=== PATIENT | female | born 1945 | race Caucasian/White ===

== ENCOUNTER 2021-04-27 14:19 | Observation (INO) ==
[2021-04-27] MEDS ORDERED: IOPAMIDOL 100 ML BOTTLE IV ONE (14:20)
[2021-04-27] MEDS ORDERED: DEXAMETHASONE 10 MG/ML VIAL IV ONE (14:50)
[2021-04-27] MEDS ORDERED: diphenhydrAMINE 50 MG/ML VIAL IV ONE (14:50)
[2021-04-27] MEDS ORDERED: KETOROLAC 30 MG/ML VIAL IV ONE (14:50)
[2021-04-27] MEDS ORDERED: PROCHLORPERAZINE 10 MG/2 ML VIAL IV ONE (14:50)
[2021-04-27] MEDS ORDERED: 0.9 % SODIUM CHLORIDE 500 ML IV ONE (14:50)
--- NOTE | 2021-04-27 15:01 | Emergency Department Note ---
Headache HPI General Chief Complaint: Headache Stated Complaint: nausea/vomiting, headache Time Seen by Provider: 04/27/21 14:42 Source: patient, RN notes reviewed, old records reviewed and other (Caregiver) Mode of arrival: EMS Limitations: other History of Present Illness HPI Narrative: Narrative: 75-year-old female according to caregivers complaining of headache with nausea vomiting and abdominal cramping. She met with her patient at 12:00 today and found her in this condition. We are unable to discern when the took place. No preceding illnesses. Caregiver has POLST with her the patient is comfort care no heroic measures DO NOT RESUSCITATE. MD Complaint: headache Onset (ago): hour(s) (3) Onset description: gradual Location: Diffuse Severity: severe Quality: aching and throbbing Improves with: dark room Worsens with: movement of head/neck and light Context: occurred at rest Associated symptoms: Reports nausea, vomiting, photophobia, sensitivity to sound and confusion; Denies fever, neck stiffness, rash, seizure, eye pain, syncope, vision loss, scotoma, tingling, numbness and weakness Other symptoms: chest pain, cough, diaphoresis, malaise, rash, seizure, SOB, eye pain/redness and other (Abdominal pain) Treatments prior to arrival: none Related Data Home Medications Medication Instructions Recorded Confirmed cetirizine 5 mg PO QDAY 02/17/20 02/04/21 escitalopram oxalate [Lexapro] 20 mg PO QDAY 02/17/20 02/04/21 metformin 500 mg PO QDAY 02/17/20 02/04/21 omeprazole-sodium bicarbonate 1 cap PO QDAY 02/17/20 02/04/21 [Zegerid OTC] risedronate [Actonel] 150 mg PO QMONTH 02/17/20 02/04/21 simvastatin [Zocor] 10 mg PO QDAY 02/17/20 02/04/21 Previous Rx's Medication Instructions Recorded prochlorperazine maleate 5 mg PO BID PRN #10 tab 04/27/21 [Compazine] Allergies Allergy/AdvReac Type Severity Reaction Status Date / Time atorvastatin [From Lipitor] Allergy Unknown Unknown Verified 04/27/21 14:36 Buspirone [From BuSpar] Allergy Unknown Unknown Verified 04/27/21 14:36 niacin Allergy Unknown Unknown Verified 04/27/21 14:36 [From Niaspan Extended-Release] Review of Systems ROS ROS Narrative: Narrative: Limitations: ROS unobtainable due to patients medical condition [facility] Narrative Patient History Narrative: Narrative: Medical/Surgical/Family History All Active Problems (Updated 04/27/21 @ 19:04 by Skip Del Valle MD) Abrasion (Acute) Headache (Acute) Colitis (Acute) Intertrigo (Acute) Fall (Acute) Erysipelas (Acute) Candidiasis of breast (Acute) Medical History Erysipelas Intertrigo Social History Smoking Status: Never smoker Exam Narrative Narrative: Narrative: General Limitations: other General appearance: Present alert and in distress Head Head: Present atraumatic, normocephalic and normal inspection Eye Eye: Present normal appearance, PERRL and EOMI ENT ENT: Present normal exam and mucous membranes moist Neck Neck: Present normal inspection and full ROM; Absent tenderness, meningismus and lymphadenopathy Chest Chest: Present normal inspection; Absent tenderness Respiratory Respiratory: Present normal lung sounds bilaterally; Absent respiratory distress Cardiovascular Cardiovascular: Present regular rate and normal rhythm; Absent systolic murmur Adbominal Abdominal: Present soft and tenderness; Absent distention, guarding, rebound and rigidity Extremities Extremities: Present normal inspection, full ROM and normal capillary refill; Absent tenderness, pedal edema and pretibial edema Back Back: Present normal inspection; Absent CVA tenderness (R) and CVA tenderness (L) Neurological Neurological: Present alert and oriented X3 Psychiatric Psychiatric: Present normal affect and normal mood Skin Skin: Present warm (WNL); Absent rash Course Reevaluation(s) Reevaluation #1: When attempting to discharge the patient she said that she was feeling improved she was having difficulty standing up without assistance. Caregiver states that she does not stay at night with her. As we attempted to ambulate the patient she failed ambulation without assistance and began complaining of increasing abdominal pain with nausea. Patient his discharge was canceled and for additional work-up was ordered for her. Time: 17:15 Vital Signs Vital signs: Vital Signs Temperature 98.4 F 04/27/21 14:30 Pulse Rate 78 04/27/21 14:30 Respiratory Rate 22 04/27/21 14:30 Blood Pressure 144/64 04/27/21 14:30 Pulse Oximetry (%) 98 04/27/21 14:30 Temperature 98.4 F 04/27/21 14:30 Pulse Rate 89 04/27/21 18:43 Respiratory Rate 22 04/27/21 14:30 Blood Pressure 140/103 04/27/21 18:43 Pulse Oximetry (%) 94 04/27/21 18:43 MDM MDM Narrative Medical decision making narrative: Narrative: 75-year-old female with headache to IV fluids. Head CT without contrast is negative. Of note the patient is DNR and comfort care only. Differential Diagnosis Differential Diagnosis: CVA, Colitis, Cholicystitis Medical Records Medical records reviewed: Yes I reviewed the patient's medical records. Lab Data Lab results reviewed: Yes I reviewed the patient's lab results. Result diagrams: 04/27/21 17:30 04/27/21 18:42 Labs: Lab Results 04/27/21 04/27/21 Range/Units 17:30 17:30 WBC 10.4 (4.5-11.0) K/mcL RBC 3.74 (3.59-5.38) M/mcL Hgb 12.6 (11.2-15.7) g/dL Hct 39.1 (34.1-44.9) % MCV 104.5 H (80.0-100.0) fL MCH 33.7 (26.0-34.0) pg MCHC 32.2 (31.0-36.0) g/dL RDW 12.9 (11.5-14.5) % Plt Count 149 (140-440) K/mcL MPV 10.4 (7.4-10.4) fL Neut % (Auto) 94.1 H (38.0-78.0) % Lymph % (Auto) 4.3 L (15.5-49.0) % [place] % (Auto) 1.3 (1.0-12.0) % Eos % (Auto) 0 (0.0-7.0) % Baso % (Auto) 0.3 (0.0-2.0) % Lymph # (Auto) 0.45 L (1.50-4.80) K/mcL [place] # (Auto) 0.14 (0.10-0.90) K/mcL Eos # (Auto) 0 (0.00-0.70) K/mcL Baso # (Auto) 0.03 (0.00-0.30) K/mcL Absolute Neutrophils 9.81 H (1.80-8.00) K/mcL POC Creatinine 0.4 L (0.6-1.2) mg/dL ED POC Tests ED POC Tests: HERMINIA - SARS Antigen Negative Radiology Data Radiology results narrative: Head CT without contrast shows no acute change, Abd CT with Gallstones, fatty liver, Colitis, and diverticulitis. EKG Data EKG #1: EKG attestation: Yes I reviewed and interpreted this EKG. EKG shows normal: sinus rhythm Rate: normal (85) Rhythm: NSR [place]/QRS: right axis deviation Voltage: decreased voltage throughout QTc: prolonged Interpretation: nonspecific ST-T wave changes Pulse Oximetry Data Pulse Ox %: 95 Interpretation: 95% on room air within normal limits Discharge Plan Patient/Caregiver Discharge Instructions Pt seen by COMMUNITY DIETITIAN/PA only: No Clinical Impression: Headache, Colitis Activity: resume usual activities as tolerated Instructions: Migraine Headache (ED), Colitis (ED) Patient Disposition: Still a Patient Condition: Fair Follow up with: Rox Workman ARNP [Primary Care Provider] - Prescriptions: New prochlorperazine maleate [Compazine] 5 mg tablet 5 mg PO BID PRN (Reason: nausea and vomiting) Qty: 10 RF: 0 No Action metformin 500 mg Tablet 500 mg PO QDAY RF: 0 cetirizine 5 mg Tablet 5 mg PO QDAY RF: 0 simvastatin [Zocor] 10 mg Tablet 10 mg PO QDAY RF: 0 escitalopram oxalate [Lexapro] 20 mg Tablet 20 mg PO QDAY RF: 0 omeprazole-sodium bicarbonate [Zegerid OTC] 20-1.1 mg-gram Capsule 1 cap PO QDAY RF: 0 risedronate [Actonel] 150 mg Tablet 150 mg PO QMONTH RF: 0
--- NOTE | 2021-04-27 16:03 | Cat Scan Report ---
History: Headache with nausea and vomiting TECHNIQUE: The brain was imaged without contrast in axial plane at 2.5 mm intervals. The radiation exposure was limited using dose reduction technology. FINDINGS: There is mild generalized atrophy both above and below the tentorium. The ventricles are normal in size. There is no evidence of an infarct, hemorrhage, edema or mass effect. No abnormal extra-axial fluid collection is present. Comparison with the prior exam done on 02/24/21 shows no change. The visualized sinuses are normally aerated. IMPRESSION: Stable age-related degenerative changes and no acute abnormality Dr. Del Valle was called with the report Interpreted and Authenticated by: Andrew Davila 04/27/21
[2021-04-27] MEDS ORDERED: morphine 2 MG/ML VIAL IV ONE (17:11)
[2021-04-27 17:50] LABS: POC Creatinine 0.4 mg/dL (0.6-1.2)
[2021-04-27 18:14] LABS: Basophils # (Auto) 0.03 K/mcL (0.00-0.30); Basophils % (Auto) 0.3 % (0.0-2.0); Eosinophils # (Auto) 0 K/mcL (0.00-0.70); Eosinophils % (Auto) 0 % (0.0-7.0); Hematocrit 39.1 % (34.1-44.9); Hemoglobin 12.6 g/dL (11.2-15.7); Lymphocytes # (Auto) 0.45 K/mcL (1.50-4.80); Lymphocytes % (Auto) 4.3 % (15.5-49.0); Mean Cell Volume 104.5 fL (80.0-100.0); Mean Corpuscular HGB Conc 32.2 g/dL (31.0-36.0); Mean Platelet Volume 10.4 fL (7.4-10.4); Monocytes # (Auto) 0.14 K/mcL (0.10-0.90); Monocytes % (Auto) 1.3 % (1.0-12.0); Neutrophils % (Auto) 94.1 % (38.0-78.0); Platelet Count 149 K/mcL (140-440); RBC 3.74 M/mcL (3.59-5.38); Red Cell Distribution Width 12.9 % (11.5-14.5); WBC 10.4 K/mcL (4.5-11.0)
--- NOTE | 2021-04-27 19:00 | Cat Scan Report ---
History: Abdominal pain, Nausea vomiting and headache TECHNIQUE: The patient was imaged following injection of intravenous nonionic contrast scanning during the portal venous phase and excretory phase. Sagittal and coronal reformats were created. Radiation exposure was limited using dose reduction technology. FINDINGS: The right diaphragm is severely elevated. There is mild compressive atelectasis in the right lower lobe. There is severe fatty infiltration throughout the liver. Beneath the capsule high in segment eight there is a densely calcified 9 x 11 mm granuloma. There is no evidence of a liver mass. The bile ducts are nondilated. In the fundus of the gallbladder there is a 1.3 cm partially calcified stone. Gallbladder noriega not thickened or inflamed and the bile ducts are nondilated. The spleen is normal size and homogeneous. There is no ascites or varices. The pancreas is normal. There is a cluster of diverticulum along the medial side of the second portion of the duodenum. They contain air-fluid levels and measure up to 3.2 cm. The noriega are not thickened or inflamed. The adrenals are normal. There is no kidney stone or hydronephrosis. A 6 x 8 mm lipid-containing nodule is present in the cortex posteriorly midportion left kidney. This may be an incidental angiomyolipoma. The kidneys are otherwise normal. The aorta is normal in caliber. There is small amount of plaque in the bifurcation. There is mild circumferential thickening of the wall of the colon from the mid transverse colon to the proximal sigmoid. There is no inflammation the adjacent fat. This is not causing bowel obstruction. Numerous diverticula are present in the sigmoid colon but there is no evidence of acute diverticulitis. The uterus and ovaries have been removed. Urinary bladder is normal. No ascites, adenopathy or abscess are present in the abdomen or pelvis. Arthritis is present in the facet joints bilaterally at L4-5 and L5-S1. There is mild spinal canal stenosis at L4-5. IMPRESSION: Low grade colitis of the transverse and descending colon. Diverticulosis of the sigmoid colon Severe fatty infiltration of the liver Severe elevated right diaphragm. The diaphragm could be paralyzed. Cholelithiasis Interpreted and Authenticated by: Andrew Davila 04/27/21
--- NOTE | 2021-04-27 19:01 | XRay Report ---
HISTORY: Nausea, vomiting and shortness of breath FINDINGS: The right diaphragm is markedly elevated and extends up to the midportion of the right hilum. This is causing compressive atelectasis of the right lower lobe. There is an azygos lobe. No mediastinal or hilar mass is seen. Left lung is clear. The heart size is normal. There is no congestive heart failure. Comparison with the prior exam from 02/24/21 shows no change in the elevation of the diaphragm. The discoid atelectasis in right lower lobe is slightly worse today. No free intra-abdominal air is present. IMPRESSION: Elevated right diaphragm with mild compressive atelectasis of the right lower lobe. The diaphragm could be paralyzed. Interpreted and Authenticated by: Andrew Davila 04/27/21
[2021-04-27 19:20] LABS: ALT/SGPT 10 U/L (<40); AST/SGOT 17 U/L (<32); Albumin 4.5 gm/dL (3.2-5.2); Albumin/Globulin Ratio 1.5 (1.0-2.3); Alkaline Phosphatase 68 U/L (39-117); Bilirubin,Total 0.8 mg/dL (0.1-1.0); Blood Urea Nitrogen 10 mg/dL (8-23); Calcium 9.3 mg/dL (8.6-10.4); Carbon Dioxide 24 mmol/L (22-30); Chloride 103 mmol/L (96-108); Glomerular Filtration Rate 72; Glucose 112 mg/dL (70-105)
[2021-04-27 19:37] LABS: ALT/SGPT 29 U/L (<40); AST/SGOT 72 U/L (<32); Albumin 3.7 gm/dL (3.2-5.2); Albumin/Globulin Ratio 1.3 (1.0-2.3); Alkaline Phosphatase 169 U/L (39-117); Bilirubin,Total 0.3 mg/dL (0.1-1.0); Blood Urea Nitrogen 10 mg/dL (8-23); Calcium 9.2 mg/dL (8.6-10.4); Carbon Dioxide 16 mmol/L (22-30); Chloride 102 mmol/L (96-108); Globulin 2.9 gm/dL (2.2-3.7); Glomerular Filtration Rate 90; Glucose 114 mg/dL (70-105)
[2021-04-28] MEDS ORDERED: KETOROLAC 30 MG/ML VIAL IV ONE ×2 (04:13→09:37)
[2021-04-28] MEDS ORDERED: morphine 2 MG/ML VIAL IV ONE (04:13)
[2021-04-28] MEDS ORDERED: diphenhydrAMINE 50 MG/ML VIAL IV ONE ×2 (04:13→09:37)
--- NOTE | 2021-04-28 04:18 | Emergency Department Note ---
ED Note Addendum Note Addendum: 0400 patient indicates that she is having a headache again. I went and medicated her with Toradol 30 mg IV, Benadryl 25 mg IV, morphine 2 mg IV. Earlier in the evening I evaluated her abdomen when the lab results came back. At that time patient stated that her belly was no longer tender. On physical exam patient allow me to palpate her abdomen and I did not see signs of her being in pain.
[2021-04-28] MEDS ORDERED: 0.9 % SODIUM CHLORIDE 1,000 ML IV ONE (09:48)
--- NOTE | 2021-04-28 09:51 | Emergency Department Note ---
ED Note Addendum Note Addendum: 75-year-old female seen by me marifer. Had diagnosis of colitis signed abdominal CT scan. Initial complaint was headache with nausea vomiting. Patient received IV fluids and pain medicines patient was unable to stand and ambulate on her own. Was felt that she was not safe for discharge in this condition. A discussion took place with the hospitalist regarding her condition and diagnosis of colitis and it was felt she did not meet admission criteria. Patient was kept in the emergency department to await evaluation for home health care and physical therapy. I have evaluated the patient this morning she continues to complain of a minor headache. She has no current nausea or vomiting. She is hungry and requested a meal tray. We will give her additional IV fluids. Toradol and Benadryl for her headache. And ordered a diabetic tray. Await evaluation from case management vital signs stable patient is awake alert and oriented. Were unable to find placement for this patient. Patient continued to receive IV fluids medications for headache was placed on a diabetic diet and I discussed patient with Dr. Petersen on the hospitalist service who graciously agreed to admit patient for dehydration colitis headache and debilitation inability to walk times assisted.
[2021-04-28] MEDS ORDERED: HALOPERIDOL 5 MG TABLET PO ONE ×2 (12:35→12:49)
[2021-04-28] MEDS ORDERED: HYDROcodone/APAP 5/325MG TABLET PO ONE (12:35)
--- NOTE | 2021-04-28 13:55 | Internal Med History&Physical ---
HPI History of Present Illness Patient information: Note initiated : 04/28/21 at 1:50 pm Service Date, if different from initiated Date: [] Patient: Tali Dubose a 75 y/o F admitted on for nausea/vomiting, headache. Chief Complaint: [] History of present illness: Ms. Dubose is a 75 year old F Came in originally yesterday for headache nausea vomiting abdominal pain. She is found to have colitis and hyponatremia and dehydration. She had a CT brain was unremarkable and a CT of the pelvis which showed colitis of the transverse and descending colon. Placement was attempted but unable to be found and patient not able to ambulate and be safe on her own, she does live in her own. 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 Review of Systems: Pertinent positives as above. denies fever/chills/chest or abdominal pain/cough/dyspnea/diarrhea. Otherwise see above. PFSH PFSH All Active Problems (Updated 04/27/21 @ 19:04 by Skip Del Valle MD) Abrasion (Acute) Headache (Acute) Colitis (Acute) Intertrigo (Acute) Fall (Acute) Erysipelas (Acute) Candidiasis of breast (Acute) Medical History Erysipelas Intertrigo MEDS/ALLERGIES Home Medications and Allergies Home Medications Medication Instructions Recorded Confirmed Type cetirizine 5 mg PO QDAY 02/17/20 04/28/21 History escitalopram oxalate [Lexapro] 20 mg PO QDAY 02/17/20 04/28/21 History risedronate [Actonel] 150 mg PO DAILY 02/17/20 04/28/21 History simvastatin [Zocor] 10 mg PO QDAY 02/17/20 04/28/21 History acetaminophen 500 mg PO BID 04/28/21 04/28/21 History acetaminophen [Tylenol] 325 mg PO DAILY 04/28/21 04/28/21 History loperamide 2 mg PO Q8HP PRN 04/28/21 04/28/21 History [id number]-TQ-lycopen-lutein 1 tab PO DAILY 04/28/21 04/28/21 History [CertaVite Senior] naproxen sodium [All Day Relief] 220 mg PO BID 04/28/21 04/28/21 History nystatin 1 applic TOPICAL BID 04/28/21 04/28/21 History omeprazole 20 mg PO DAILY 04/28/21 04/28/21 History Allergies Allergy/AdvReac Type Severity Reaction Status Date / Time atorvastatin [From Lipitor] Allergy Unknown Unknown Verified 04/27/21 14:36 Buspirone [From BuSpar] Allergy Unknown Unknown Verified 04/27/21 14:36 niacin Allergy Unknown Unknown Verified 04/27/21 14:36 [From Niaspan Extended-Release] EXAM Constitutional Vitals: Temp Pulse Resp BP Pulse Ox 98.4 F 87 22 133/87 94 04/27/21 14:30 04/28/21 12:01 04/27/21 14:30 04/28/21 12:01 04/28/21 12:01 Exam: General: Alert, Awake, No acute Distress Eyes/N/T: EOMI, PERRL, dry MM Head/Neck: neck supple, normocephalic atraumatic CV: RRR, No murmurs, normal s1/s2 Pulm: Clear b/l, no wheezing/rhonchi/rales Abd: soft, nontender, +BS x4 Ext: no clubbing/cyanosis/edema Neuro: Alert, no focal deficits, moves all extremities, CN 2-12 grossly intact, symmetrical strength b/l upper/lower, sensations intact b/l upper/lower Skin: warm/dry DATA Data Completed and Pending Labs: Labs from last 24 hours 04/28/21 04/27/21 04/27/21 13:48 18:43 18:42 WBC RBC Hgb Hct MCV MCH MCHC RDW Plt Count MPV Neut % (Auto) Lymph % (Auto) [place] % (Auto) Eos % (Auto) Baso % (Auto) Lymph # (Auto) [place] # (Auto) Eos # (Auto) Baso # (Auto) Absolute Neutrophils Sodium 132 L Potassium 4.2 Chloride 102 Carbon Dioxide 16 L Anion Gap 14.0 BUN 10 Creatinine 0.6 POC Creatinine GFR Calculation 90 Glucose 114 H Calcium 9.2 Total Bilirubin 0.3 AST 72 H ALT 29 Alkaline Phosphatase 169 H Troponin T < 0.01 Total Protein 6.6 Albumin 3.7 Globulin 2.9 Albumin/Globulin Ratio 1.3 Lipase 30 Urine Color Pending Urine Appearance Pending Urine pH Pending Ur Specific [place] Pending Urine Protein Pending Urine Glucose (UA) Pending Urine Ketones Pending Urine Occult Blood Pending Urine Nitrate Pending Urine Bilirubin Pending Urine Urobilinogen Pending Ur Leukocyte Esterase Pending 04/27/21 04/27/21 04/27/21 17:30 17:30 17:30 WBC 10.4 RBC 3.74 Hgb 12.6 Hct 39.1 MCV 104.5 H MCH 33.7 MCHC 32.2 RDW 12.9 Plt Count 149 MPV 10.4 Neut % (Auto) 94.1 H Lymph % (Auto) 4.3 L [place] % (Auto) 1.3 Eos % (Auto) 0 Baso % (Auto) 0.3 Lymph # (Auto) 0.45 L [place] # (Auto) 0.14 Eos # (Auto) 0 Baso # (Auto) 0.03 Absolute Neutrophils 9.81 H Sodium 139 Potassium 4.1 Chloride 103 Carbon Dioxide 24 Anion Gap 12.0 BUN 10 Creatinine 0.8 POC Creatinine 0.4 L GFR Calculation 72 Glucose 112 H Calcium 9.3 Total Bilirubin 0.8 AST 17 ALT 10 Alkaline Phosphatase 68 Troponin T < 0.01 Total Protein 7.5 Albumin 4.5 Globulin 3.0 Albumin/Globulin Ratio 1.5 Lipase 21 Urine Color Urine Appearance Urine pH Ur Specific [place] Urine Protein Urine Glucose (UA) Urine Ketones Urine Occult Blood Urine Nitrate Urine Bilirubin Urine Urobilinogen Ur Leukocyte Esterase A/P Narrative A/P Narrative: A: *Colitis with N/V & Metabolic Acidosis: *Hyponatremia: *Volume depletion: *Generalized weakness/debility: *Atelectasis: *GERD: *Developed developmental delay: * P: -Cipro/Flagyl -Follow-up chemistry -s/p IVF -PT/OT -Incentive spirometer - -CM for placement -ppx: Lovenox DNR Time Spent With Patient Time: Total time spent is greater than 50% in coordination of care (as documented) at patient's floor/unit and/or counseling patient:
[2021-04-28] MEDS ORDERED: metroNIDAZOLE 500 MG/100 ML BAG IV SCH (14:00)
[2021-04-28] MEDS ORDERED: CIPROFLOXACIN 400 MG/200 ML BAG IV SCH (14:00)
[2021-04-28 14:20] LABS: Appearance,Urine CLEAR (Clear); Bacteria,Urine FEW /hpf (0); Bilirubin,Urine Negative (Negative); Color,Urine YELLOW; Culture Indicated,Urine Yes; Glucose,Urine (UA) Negative (Negative); Ketones,Urine 20 mg/dL (Negative); Leukocyte Esterase,Urine Negative /ug (Negative); Mucus,Urine FEW /hpf; Nitrate,Urine Negative (Negative); Protein,Urine Negative (Negative); Specific Gravity,Urine 1.012 (1.000-1.035); Urine Blood Negative (Negative); Urine RBC < 1 /hpf (0-3); Urine Squamous Epithelial Cell 0 /hpf (0-4); Urine WBC 1 /hpf (0-4); Urobilinogen,Urine Negative
[2021-04-28 14:41] LABS: Hematocrit 39.3 % (34.1-44.9); Hemoglobin 12.3 g/dL (11.2-15.7); Mean Cell Volume 104.8 fL (80.0-100.0); Mean Corpuscular HGB Conc 31.3 g/dL (31.0-36.0); Mean Platelet Volume 10.2 fL (7.4-10.4); Platelet Count 176 K/mcL (140-440); RBC 3.75 M/mcL (3.59-5.38); Red Cell Distribution Width 13.3 % (11.5-14.5); WBC 10.6 K/mcL (4.5-11.0)
[2021-04-28] MEDS ORDERED: ACETAMINOPHEN 500 MG TABLET PO PRN (14:58)
[2021-04-28] MEDS ORDERED: CETIRIZINE 10 MG TABLET PO PRN (15:02)
[2021-04-28 15:04] LABS: ALT/SGPT 26 U/L (<40); AST/SGOT 55 U/L (<32); Albumin 3.7 gm/dL (3.2-5.2); Albumin/Globulin Ratio 1.4 (1.0-2.3); Alkaline Phosphatase 138 U/L (39-117); Bilirubin,Direct < 0.2 mg/dL (0-0.3); Bilirubin,Total 0.4 mg/dL (0.1-1.0); Blood Urea Nitrogen 13 mg/dL (8-23); Calcium 8.9 mg/dL (8.6-10.4); Carbon Dioxide 16 mmol/L (22-30); Chloride 101 mmol/L (96-108); Globulin 2.6 gm/dL (2.2-3.7); Glomerular Filtration Rate 72; Glucose 154 mg/dL (70-105); Lactate Dehydrogenase 211 U/L (135-225); Phosphorous 2.2 mg/dL (2.5-4.5); Triglycerides 152 mg/dL (<150); Uric Acid 5.9 mg/dL (2.5-8.0)
[2021-04-28 15:29] LABS: Hypochromasia 1+ (None Seen); Lymphocytes % 9 % (15-49); Macrocytosis 1+ (None Seen); Monocytes % (Manual) 6 % (1-12); Platelet Estimate NORMAL (Normal); RBC Morphology ABNORMAL (Normal); Segmented Neutrophils % 85 % (38-78)
[2021-04-28] MEDS ORDERED: POTASSIUM CHLORIDE 20 MEQ TABLET PO PRN ×2 (16:35)
[2021-04-28] MEDS ORDERED: POLYETHYLENE GLYCOL 3350 17 GM PACKET PO PRN (16:35)
[2021-04-28] MEDS ORDERED: MAGNESIUM SULFATE 2 GM/50 ML BAG IV PRN (16:35)
[2021-04-28] MEDS ORDERED: IPRATROPIUM/ALBUTEROL 3 ML AMPUL.NEB NEB PRN (16:35)
[2021-04-28] MEDS ORDERED: POTASSIUM CHLORIDE 40 MEQ in DEXTROSE 5% IN WATER 500 ML IV PRN (16:35)
[2021-04-28] MEDS ORDERED: ONDANSETRON 4 MG/2 ML VIAL IV PRN (16:35)
[2021-04-28] MEDS: ACETAMINOPHEN 325 MG TABLET PO PRN (16:56)
[2021-04-28] MEDS: CIPROFLOXACIN 400 MG/200 ML BAG IV SCH (16:56)
[2021-04-28] MEDS: metroNIDAZOLE 500 MG/100 ML BAG IV SCH ×2 (18:03→23:50)
[2021-04-28] MEDS ORDERED: POTASSIUM PHOSPHATE 40 MEQ in DEXTROSE 5% IN WATER 500 ML IV ONE (18:59)
[2021-04-28] MEDS: SIMVASTATIN 10 MG TABLET PO SCH (20:03)
[2021-04-28] MEDS ORDERED: POTASSIUM PHOSPHATE 66 MEQ/15 ML VIAL IV ONE (21:32)
[2021-04-28] MEDS: 0.9 % SODIUM CHLORIDE 10 ML SYRINGE IV SCH (21:45)
[2021-04-29] MEDS: ACETAMINOPHEN 325 MG TABLET PO PRN ×4 (03:10→21:37)
[2021-04-29] MEDS: metroNIDAZOLE 500 MG/100 ML BAG IV SCH ×3 (05:24→22:21)
--- NOTE | 2021-04-29 07:08 | Internal Med Progress Note ---
SUBJECTIVE Subjective Patient information: Note initiated : 04/29/21 at 7:06 am Service Date, if different from initiated Date: [] Patient: Tali Dubose 75 y/o F admitted on 04/28/21 for nausea/vomiting, headache. Chief Complaint: [] Interval history: History of present illness: Ms. Dubose is a 75 year old F Came in originally yesterday for headache nausea vomiting abdominal pain. She is found to have colitis and hyponatremia and dehydration. She had a CT brain was unremarkable and a CT of the pelvis which showed colitis of the transverse and descending colon. Placement was attempted but unable to be found and patient not able to ambulate and be safe on her own, she does live in her own. 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 04/29 No overnight event or new complaints. Ambulating with PT when I saw her. Review of Systems: denies headache/fever/chills/nausea/vomiting/chest or abdominal pain/cough/dyspnea/diarrhea. Otherwise see above. Constitutional Vitals: Vital Signs Temp Pulse Resp BP Pulse Ox 98.4 F 86 18 145/81 92 04/29/21 03:01 04/29/21 03:01 04/29/21 03:01 04/29/21 03:01 04/29/21 03:01 Period Temp Pulse Resp BP Sys/Sawnn Pulse Ox Last 24 Hr 98 F-98.9 F 78-99 16-20 109-166/60-110 89-100 Intake and Output 04/28/21 04/29/21 04/29/21 21:59 05:59 13:59 Intake Total 3664 210.6778 100 Output Total 301 Balance 9436 931.4848 100 Weight 51.211 kg Intake & Output: Intake & Output 04/28/21 04/29/21 04/29/21 21:59 05:59 13:59 Intake Total 4278 199.6470 100 Output Total 301 Balance 0847 422.2078 100 Weight 51.211 kg Intake: IV 1903 934.1207 100 Sodium Chloride 0.9% 1,000 ml @ 1000 Wide Open IV BOLUS ONE Rx#: [id number] Potassium Phosphate 40 Meq In 509.0909 Dextrose 5% in Water 500 ml @ 127.273 mls/hr IV ONCE ONE Rx#: [id number] Oral 125 200 Output: Void Amount 300 # of times incontinent of urine 1 Other: Meal Dinner Percent of Meal Consumed 50% Feeding Ability Independent Urine Appearance Clear Urine Color Bright Yellow Stool Size Small Stool Color Brown Stool Consistency Formed # Bowel Movements 1 Exam: General: Alert, Awake, No acute Distress Eyes/N/T: EOMI, Head/Neck: neck supple, CV: RRR, No murmurs, Pulm: Clear b/l, no wheezing/rhonchi/rales Abd: soft, nontender, +BS x4 Ext: no clubbing/cyanosis/edema Neuro: Alert, no focal deficits, moves all extremities, Skin: warm/dry OBJ DATA Labs CBC & Chem 7: 04/28/21 14:05 04/29/21 05:35 Labs: Abnormal Lab Results 04/28/21 04/28/21 04/28/21 14:05 14:05 13:48 MCV 104.8 H Neut % (Auto) Lymph % (Auto) Lymph # (Auto) Seg Neutrophils % 85 H Lymphocytes % 9 L Absolute Neutrophils RBC Morphology Abnormal A Hypochromasia 1+ A Macrocytosis 1+ A Sodium Carbon Dioxide 16 L Anion Gap 17.0 H POC Creatinine Glucose 154 H Phosphorus 2.2 L GGT 76 H AST 55 H Alkaline Phosphatase 138 H Triglycerides 152 H Urine Ketones 20 A Urine Bacteria Few A Urine Mucus Few A 04/27/21 04/27/21 04/27/21 18:42 17:30 17:30 MCV 104.5 H Neut % (Auto) 94.1 H Lymph % (Auto) 4.3 L Lymph # (Auto) 0.45 L Seg Neutrophils % Lymphocytes % Absolute Neutrophils 9.81 H RBC Morphology Hypochromasia Macrocytosis Sodium 132 L Carbon Dioxide 16 L Anion Gap POC Creatinine 0.4 L Glucose 114 H 112 H Phosphorus GGT AST 72 H Alkaline Phosphatase 169 H Triglycerides Urine Ketones Urine Bacteria Urine Mucus Meds: Medications Acetaminophen (Acetaminophen 325 Mg Tablet) 650 mg PO Q6HP PRN; Protocol PRN Reason: Per Pain Protocol Last Admin: 04/29/21 03:10 Dose: 650 mg Documented by: Albuterol/Ipratropium (Ipratropium/Albuterol 3 Ml Ampul.Neb) 3 ml NEB Q4HP PRN PRN Reason: Shortness Of Breath Cetirizine HCl (Cetirizine 10 Mg Tablet) 5 mg PO DAILYP PRN PRN Reason: Allergic Symptoms Enoxaparin Sodium (Enoxaparin 30 Mg/0.3 Ml Syringe) 30 mg SQ DAILY [facility] Escitalopram Oxalate (Escitalopram 20 Mg Tablet) 20 mg PO QDAY [facility] Ciprofloxacin (Cipro) 400 mg in 200 mls @ 200 mls/hr IV Q24H [facility]; Protocol Last Infusion: 04/28/21 17:58 Dose: Infused Documented by: Metronidazole (Flagyl) 500 mg in 100 mls @ 100 mls/hr IV Q8H [facility]; Protocol Last Infusion: 04/29/21 06:50 Dose: Infused Documented by: Potassium Chloride 40 meq/ (Dextrose) 520 mls @ 130 mls/hr IV UD PRN PRN Reason: Potassium < 3 Magnesium Sulfate (Magnesium Sulfate) 2 gm in 50 mls @ 50 mls/hr IV UD PRN PRN Reason: Magnesium </= 1.6 Omeprazole (Omeprazole 20 Mg Capsule) 20 mg PO QAMAC [facility] Ondansetron HCl (Ondansetron 4 Mg/2 Ml Vial) 4 mg IV Q4HP PRN PRN Reason: Nausea And Vomiting Polyethylene Glycol (Polyethylene Glycol 3350 17 Gm Packet) 17 gm PO DAILYP PRN PRN Reason: Constipation Potassium Chloride (Potassium Chloride 20 Meq Tablet) 40 meq PO UD PRN PRN Reason: Potssium is 3-3.5 Potassium Chloride (Potassium Chloride 20 Meq Tablet) 40 meq PO UD PRN PRN Reason: Potassium < 3 Simvastatin (Simvastatin 10 Mg Tablet) 10 mg PO HS [facility] Last Admin: 04/28/21 20:03 Dose: 10 mg Documented by: Sodium Chloride (0.9 % Sodium Chloride 10 Ml Syringe) 10 ml IV Q8 [facility] Last Admin: 04/28/21 21:45 Dose: 10 ml Documented by: A/P Narrative A/P Narrative: A: *Colitis with N/V & Metabolic Acidosis: improving *Hyponatremia: improved *Volume depletion: improved *Hypophos: *Generalized weakness/debility: *Atelectasis: *GERD: *Developed developmental delay: * P: -Cipro/Flagyl -s/p IVF -advance to full liquid -replete electrolytes -PT/OT -Incentive spirometer -CM for placement -ppx: Lovenox DNR Time Spent With Patient Time: Total time spent is greater than 50% in coordination of care (as documented) at patient's floor/unit and/or counseling patient: QUALITY VTE Deep Vein Thrombosis/Pulmonary Embolism Present on Admission: No
[2021-04-29 07:34] LABS: Blood Urea Nitrogen 11 mg/dL (8-23); Calcium 8.9 mg/dL (8.6-10.4); Carbon Dioxide 15 mmol/L (22-30); Chloride 107 mmol/L (96-108); Glomerular Filtration Rate 85; Glucose 106 mg/dL (70-105)
[2021-04-29] MEDS: CIPROFLOXACIN 400 MG/200 ML BAG IV SCH (08:39)
[2021-04-29] MEDS: 0.9 % SODIUM CHLORIDE 10 ML SYRINGE IV SCH ×3 (08:39→22:22)
[2021-04-29] MEDS: OMEPRAZOLE 20 MG CAPSULE PO SCH (08:42)
[2021-04-29] MEDS ORDERED: RISEDRONATE 150 MG PO SCH (09:00)
[2021-04-29] MEDS: SODIUM BICARBONATE 650 MG TABLET PO SCH ×3 (09:51→20:40)
[2021-04-29] MEDS: ESCITALOPRAM 20 MG TABLET PO SCH (09:51)
[2021-04-29] MEDS: ENOXAPARIN 30 MG/0.3 ML SYRINGE SQ SCH (09:51)
--- NOTE | 2021-04-29 10:05 | Discharge Summary ---
Discharge Provider Provider Patient information: Note initiated : 04/29/21 at 10:04 am Service Date, if different from initiated Date: [] Patient: Tali Dubose 75 y/o F admitted on 04/28/21 for nausea/vomiting, headache. Chief Complaint: [] Date of admission: 04/28/21 14:51 Discharge date: 04/30/21 Primary care physician: Rox Workman Consults: 04/28/21 Consult to Physician [CONS] Stat Comment: Consulting Provider: Ken Petersen Reason For Exam: Physician to Consult Discharge Meds Discharge Medications Home Medications cetirizine 5 mg PO QDAY 02/17/20 [History Confirmed 04/28/21 Last Taken Unknown] escitalopram oxalate [Lexapro] 20 mg PO QDAY 02/17/20 [History Confirmed 04/28/21 Last Taken Unknown] risedronate [Actonel] 150 mg PO DAILY 02/17/20 [History Confirmed 04/28/21 Last Taken Unknown] simvastatin [Zocor] 10 mg PO QDAY 02/17/20 [History Confirmed 04/28/21 Last Taken Unknown] CertaVite Senior 1 tab PO DAILY 04/28/21 [History Confirmed 04/28/21 Last Taken Unknown] acetaminophen 500 mg PO BID 04/28/21 [History Confirmed 04/28/21 Last Taken Unknown] acetaminophen [Tylenol] 325 mg PO DAILY 04/28/21 [History Confirmed 04/28/21 Last Taken Unknown] loperamide 2 mg PO Q8HP PRN 04/28/21 [History Confirmed 04/28/21 Last Taken Unknown] naproxen sodium [All Day Relief] 220 mg PO BID 04/28/21 [History Confirmed 04/28/21 Last Taken Unknown] nystatin 1 applic TOPICAL BID 04/28/21 [History Confirmed 04/28/21 Last Taken Unknown] omeprazole 20 mg PO DAILY 04/28/21 [History Confirmed 04/28/21 Last Taken Unknown] ciprofloxacin HCl 500 mg PO BID #8 tab 04/29/21 [Rx Last Taken Unknown] metronidazole 500 mg PO Q8H #12 tab 04/29/21 [Rx Last Taken Unknown] COURSE Hospital Course Hospital course: Interval history: History of present illness: Ms. Dubose is a 75 year old F Came in originally yesterday for headache nausea vomiting abdominal pain. She is found to have colitis and hyponatremia and dehydration. She had a CT brain was unremarkable and a CT of the pelvis which showed colitis of the transverse and descending colon. Placement was attempted but unable to be found and patient not able to ambulate and be safe on her own, she does live in her own. 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 04/29 No overnight event or new complaints. Ambulating with PT when I saw her. 04/30 No overnight or new events. Urine cultures gram-negative bacillus. A/P Narrative: A: *Colitis with N/V & Metabolic Acidosis: improving *Hyponatremia: improved *Volume depletion: improved *Hypophos: *UTI: *Generalized weakness/debility: *Atelectasis: *GERD: *Developed developmental delay: * Discharge diagnosis: Colitis hyponatremia volume depletion hypophosphatemia generalized weakness Secondary discharge diagnosis: Atelectasis GERD developmental delay, uti Time Spent with Patient Time attestation: Total time spent providing and/or coordinating discharge services: Time spent: Greater than 30 minutes EXAM Constitutional Vitals: Temp Pulse Resp BP Pulse Ox 98.2 F 82 20 135/74 93 04/29/21 08:42 04/29/21 08:00 04/29/21 08:00 04/29/21 08:00 04/29/21 08:00 Discharge Data Data Completed and Pending Labs on day of discharge: Labs from last 24 hours 04/29/21 04/28/21 04/28/21 05:35 14:05 14:05 WBC 10.6 RBC 3.75 Hgb 12.3 Hct 39.3 MCV 104.8 H MCH 32.8 MCHC 31.3 RDW 13.3 Plt Count 176 MPV 10.2 Seg Neutrophils % 85 H Lymphocytes % 9 L Monocytes % (Manual) 6 Platelet Estimate Normal RBC Morphology Abnormal A Hypochromasia 1+ A Macrocytosis 1+ A Sodium 139 134 Potassium 4.6 4.0 Chloride 107 101 Carbon Dioxide 15 L 16 L Anion Gap 17.0 H 17.0 H BUN 11 13 Creatinine 0.7 0.8 GFR Calculation 85 72 Glucose 106 H 154 H Uric Acid 5.9 Calcium 8.9 8.9 Phosphorus 2.2 L Magnesium 1.9 Total Bilirubin 0.4 Direct Bilirubin < 0.2 GGT 76 H AST 55 H ALT 26 Alkaline Phosphatase 138 H Lactate Dehydrogenase 211 Total Protein 6.3 Albumin 3.7 Globulin 2.6 Albumin/Globulin Ratio 1.4 Triglycerides 152 H Urine Color Urine Appearance Urine pH Ur Specific Post Urine Protein Urine Glucose (UA) Urine Ketones Urine Occult Blood Urine Nitrate Urine Bilirubin Urine Urobilinogen Ur Leukocyte Esterase Urine RBC Urine WBC Ur Squamous Epith Cells Urine Bacteria Urine Mucus Ur Culture Indicated? 04/28/21 13:48 WBC RBC Hgb Hct MCV MCH MCHC RDW Plt Count MPV Seg Neutrophils % Lymphocytes % Monocytes % (Manual) Platelet Estimate RBC Morphology Hypochromasia Macrocytosis Sodium Potassium Chloride Carbon Dioxide Anion Gap BUN Creatinine GFR Calculation Glucose Uric Acid Calcium Phosphorus Magnesium Total Bilirubin Direct Bilirubin GGT AST ALT Alkaline Phosphatase Lactate Dehydrogenase Total Protein Albumin Globulin Albumin/Globulin Ratio Triglycerides Urine Color Yellow Urine Appearance Clear Urine pH 8.0 Ur Specific Post 1.012 Urine Protein Negative Urine Glucose (UA) Negative Urine Ketones 20 A Urine Occult Blood Negative Urine Nitrate Negative Urine Bilirubin Negative Urine Urobilinogen Negative Ur Leukocyte Esterase Negative Urine RBC < 1 Urine WBC 1 Ur Squamous Epith Cells 0 Urine Bacteria Few A Urine Mucus Few A Ur Culture Indicated? Yes Discharge Plan Patient/Caregiver Discharge Instructions Activity: increase activity as tolerated Diet: Regular Diet Instructions: Migraine Headache (ED), Colitis (ED) Prescriptions: New ciprofloxacin HCl 500 mg tablet 500 mg PO BID Qty: 8 RF: 0 metronidazole 500 mg tablet 500 mg PO Q8H Qty: 12 RF: 0 Continued cetirizine 5 mg Tablet 5 mg PO QDAY RF: 0 simvastatin [Zocor] 10 mg Tablet 10 mg PO QDAY RF: 0 escitalopram oxalate [Lexapro] 20 mg Tablet 20 mg PO QDAY RF: 0 risedronate [Actonel] 150 mg Tablet 150 mg PO DAILY RF: 0 acetaminophen [Tylenol] 325 mg tablet 325 mg PO DAILY RF: 0 loperamide 2 mg tablet 2 mg PO Q8HP PRN (Reason: Diarrhea) RF: 0 acetaminophen 500 mg tablet 500 mg PO BID RF: 0 naproxen sodium [All Day Relief] 220 mg tablet 220 mg PO BID RF: 0 omeprazole 20 mg capsule,delayed release(DR/EC) 20 mg PO DAILY RF: 0 nystatin 100,000 unit/gram powder 1 applic TOPICAL BID RF: 0 CertaVite Senior 0.4-300-250 mg-mcg-mcg tablet 1 tab PO DAILY RF: 0 Follow Up Plan Follow up with: Rox Workman ARNP [Primary Care Provider] - Patient Disposition: Home Health Service Prognosis: Fair Overall status at discharge: patient is progressing back to baseline Discharge Orders: Discharge Order (Routine); Ordered 04/30/21 Ordered By: Ken Petersen [facility] Deep Vein Thrombosis/Pulmonary Embolism Present on Admission: No
[2021-04-29] MEDS: SIMVASTATIN 10 MG TABLET PO SCH (20:41)
[2021-04-30] MEDS: 0.9 % SODIUM CHLORIDE 10 ML SYRINGE IV SCH ×2 (05:34→14:40)
[2021-04-30] MEDS: metroNIDAZOLE 500 MG/100 ML BAG IV SCH ×2 (05:34→14:05)
[2021-04-30 07:17] LABS: Blood Urea Nitrogen 6 mg/dL (8-23); Calcium 8.9 mg/dL (8.6-10.4); Carbon Dioxide 20 mmol/L (22-30); Chloride 106 mmol/L (96-108); Glomerular Filtration Rate 90; Glucose 96 mg/dL (70-105)
[2021-04-30] MEDS: ESCITALOPRAM 20 MG TABLET PO SCH (09:29)
[2021-04-30] MEDS: OMEPRAZOLE 20 MG CAPSULE PO SCH (09:29)
[2021-04-30] MEDS: CIPROFLOXACIN 400 MG/200 ML BAG IV SCH (09:29)
[2021-04-30] MEDS: ENOXAPARIN 30 MG/0.3 ML SYRINGE SQ SCH (09:30)
[2021-04-30] MEDS: ACETAMINOPHEN 325 MG TABLET PO PRN (10:53)
--- NOTE | 2021-05-05 13:33 | EKG ---
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
== END 2021-04-30 17:00 | disposition home health service (06) ==
LOC: ED 14:19 → MEDSUR 14:19
PROVIDERS: ADMIT Internal Medicine; ATTEND Internal Medicine